=== PATIENT | male | born 1985 | race African-American/Black ===

== ENCOUNTER → 2016-12-03 | Outpatient (CLI) | payer OTHER ==
[2016-12-03 10:44] LABS: CH 29.7; CHCM 32.9; HCT 52.1 % (39.0-53.0); HDW 2.56; HGB 16.7 gm/dL (13.0-17.5); MCH 29.1 pg (25.0-35.0); MCHC 32.1 g/dL (31.0-37.0); MCV 90.7 fL (80.0-100.0); Mean Platelet Volume 9.3; RBC 5.75 m/uL (4.30-5.90); RDW 13.8 % (11.5-15.5); WBC 5.4 k/uL (3.8-10.6)
[2016-12-03 11:32] LABS: Prostate Specific Antigen 0.29 ng/mL (0.00-4.00)
== END | disposition home or self-care (01) ==
LOC: LABWHC1 10:15
PROVIDERS: ATTEND Internal Medicine Endocrinology, Diabetes & Metabolism
DX: E29.1 Testicular hypofunction (principal)
CPT/HCPCS: 36415; 84153; 84403; 85027

== ENCOUNTER 2017-04-10 00:16 | Emergency (ER) | payer OTHER ==
[2017-04-10] MEDS ORDERED: SODIUM CHLORIDE 0.9% 500 ML IV STA (00:52)
[2017-04-10] MEDS ORDERED: SODIUM CHLORIDE 0.9% 1,000 ML IV STA (00:52)
--- NOTE | 2017-04-10 01:01 | ED ---
General Adult HPI - General Source: patient, EMS, RN notes reviewed Mode of arrival: EMS Limitations: no limitations <Francisco Aquino - Last Filed: 04/10/17 00:57> <Hector Salcido - Last Filed: 04/10/17 02:06> - General Chief complaint: Chest Pain Stated complaint: Palpitations Time Seen by Provider: 04/10/17 00:18 - History of Present Illness Initial comments: Chief complaint history of present illness a 31-year-old male here with complaint of palpitations and chest discomfort. Patient reports been ongoing for about 3 hours. He states that he did this evening was eating a marijuana cookie. This has happened in the past and it has happened while eating marijuana cookies as well. He has been on Adderall in the past but not for a long time he never had these kinds of problems when he was on the Adderall. No sweats no nausea no vomiting but irregular heartbeats. Patient denies any other drugs. (Francisco Aquino) - Related Data Home Medications Medication Instructions Recorded Confirmed Dextroamphetamine/Amphetamine 20 mg PO QAM 02/24/15 02/24/15 [Adderall Xr] Testosterone Cypionate 100 mg IM DIRECTED 02/24/15 02/24/15 [Depo-Testosterone] Previous Rx's Medication Instructions Recorded Acetaminophen-Codeine 300-30mg 2 each PO Q4H PRN #20 tablet 02/24/15 [Tylenol #3] Ibuprofen [Motrin] 600 mg PO Q6HR PRN #20 tab 02/24/15 Allergies Allergy/AdvReac Type Severity Reaction Status Date / Time No Known Allergies Allergy Verified 04/10/17 00:16 Review of Systems ROS Other: All systems not noted in ROS Statement are negative. <Francisco Aquino - Last Filed: 04/10/17 00:57> ROS Other: All systems not noted in ROS Statement are negative. <Hector Salcido - Last Filed: 04/10/17 02:06> ROS Statement: Those systems with pertinent positive or pertinent negative responses have been documented in the HPI. review of systems no headache or visual acuity changes no chest pain with occasional sensation of discomfort with irregular heartbeat feels racing. No nausea no vomiting no GI/ problems. No neuro deficits. All systems were reviewed.Past medical problems significant for low testosterone is not received testosterone supplements over 6 months. He had eye surgery because of a detached retina after an accident as a child. His father has Saguache's chorea. Patient denies ALLERGIES does smoke he states he probably drinks too much. Has not been drinking this evening.no known ALLERGIES (Francisco Aquino) Past Medical History Past Medical History: No Reported History Additional Past Medical History / Comment(s): sarcoidosis History of Any Multi-Drug Resistant Organisms: MRSA Additional Past Surgical History / Comment(s): Right Hand Surgery Past Psychological History: ADD/ADHD Smoking Status: Current every day smoker Past Alcohol Use History: Occasional Past Drug Use History: Marijuana <Francisco Aquino - Last Filed: 04/10/17 00:57> General Exam Limitations: no limitations <Francisco Aquino - Last Filed: 04/10/17 00:57> <Hector Salcido - Last Filed: 04/10/17 02:06> - General Exam Comments Initial Comments: General: The patient is awake and alert,given because of palpitations. Vital signs shows temperature 98.9 pulse 92 respiratory rate 18 pulse ox 96% room air blood pressure 159/94 Eye: Pupils are equal, round and reactive to light, extra-ocular movements are intact ; there is normal conjunctiva bilaterally. No signs of icterus. Ears, nose, mouth and throat: There are moist mucous membranes and no oral lesions. Neck: The neck is supple, there is no tenderness . Cardiovascular: irregular rate and rhythm. No murmur Respiratory: Lungs are clear to auscultation, respirations are non-labored, breath sounds are equal. No wheezes, stridor, rales, or rhonchi. Gastrointestinal: Soft, non-distended, non-tender abdomen without masses or organomegaly noted. There is no rebound or guarding present. No CVA tenderness. Bowel sounds are unremarkable. Back: There is no tenderness to palpation in the midline. There is no obvious deformity. No rashes noted. Musculoskeletal: Normal ROM, no tenderness, There is no pedal edema. There is no calf tenderness or swelling. Sensation intact. Pulses equal bilaterally 2+. Neurological: CN II-XII intact, There are no obvious motor or sensory deficits. Coordination appears grossly intact. Speech is normal.no neuro deficits Skin: Skin is warm and dry and no rashes or lesions are noted. (Francisco Aquino) EKG Findings - EKG Comments: EKG Findings:: EKG was done and reviewed at 00 26 showing sinus rhythm with frequent PVCs. Rate 99 OH interval was 138 QRS is 86 QT [address] Aquino <Francisco Aquino - Last Filed: 04/10/17 00:57> Medical Decision Making <Francisco Aquino - Last Filed: 04/10/17 00:57> - Lab Data Result diagrams: 04/10/17 00:25 04/10/17 00:25 <Hector Salcido - Last Filed: 04/10/17 02:06> - Medical Decision Making 31-year-old male presenting with palpitations, and mild chest discomfort after eating a marijuana cookie. He has had these symptoms in the past. Patient's in no acute distress, vital signs are stable. He has a past medical history of sarcoidosis but is not currently on any medications. EKG shows normal sinus rhythm with a ventricular rate of 99, OH interval 138, QRS duration is 86, QTC 469, there is frequent PVCs. Laboratory studies including CBC, CMP, magnesium, and cardiac enzymes is unremarkable. Electrolytes are all normal. Patient is counseled on avoiding marijuana in the future as these are likely the precipitant of his palpitations and PVCs. Chest x-ray shows no acute process. Patient denies any other ingestion. Patient will be discharged home with outpatient follow-up Diagnosis: Palpitations, PVCs, marijuana ingestion. (Hector Salcido) - Lab Data Lab Results 04/10/17 04/10/17 04/10/17 Range/Units 00:25 00:25 00:25 WBC 6.7 (3.8-10.6) k/uL RBC 4.46 (4.30-5.90) m/uL Hgb 13.2 (13.0-17.5) gm/dL Hct 39.3 (39.0-53.0) % MCV 88.1 (80.0-100.0) fL MCH 29.7 (25.0-35.0) pg MCHC 33.7 (31.0-37.0) g/dL RDW 14.2 (11.5-15.5) % Plt Count 215 (150-450) k/uL Neutrophils % 65 % Lymphocytes % 26 % Monocytes % 4 % Eosinophils % 3 % Basophils % 1 % Neutrophils # 4.4 (1.3-7.7) k/uL Lymphocytes # 1.8 (1.0-4.8) k/uL Monocytes # 0.3 (0-1.0) k/uL Eosinophils # 0.2 (0-0.7) k/uL Basophils # 0.0 (0-0.2) k/uL PT (9.0-12.0) sec INR (<1.2) APTT (22.0-30.0) sec D-Dimer (<0.60) mg/L FEU Sodium 142 (137-145) mmol/L Potassium 4.1 (3.5-5.1) mmol/L Chloride 107 (98-107) mmol/L Carbon Dioxide 22 (22-30) mmol/L Anion Gap 13 mmol/L BUN 23 H (9-20) mg/dL Creatinine 1.20 (0.66-1.25) mg/dL Est GFR (MDRD) Af Amer >60 (>60 ml/min/1.73 sqM) Est GFR (MDRD) Non-Af >60 (>60 ml/min/1.73 sqM) Glucose 98 (74-99) mg/dL Calcium 10.0 (8.4-10.2) mg/dL Magnesium 1.7 (1.6-2.3) mg/dL Total Bilirubin 0.2 (0.2-1.3) mg/dL AST 16 L (17-59) U/L ALT 28 (21-72) U/L Alkaline Phosphatase 61 (38-126) U/L Total Creatine Kinase 87 (55-170) U/L CK-MB (CK-2) 0.4 (0.0-2.4) ng/mL CK-MB (CK-2) Rel Index 0.5 Troponin I <0.012 (0.000-0.034) ng/mL Total Protein 7.4 (6.3-8.2) g/dL Albumin 4.5 (3.5-5.0) g/dL 04/10/17 Range/Units 00:25 WBC (3.8-10.6) k/uL RBC (4.30-5.90) m/uL Hgb (13.0-17.5) gm/dL Hct (39.0-53.0) % MCV (80.0-100.0) fL MCH (25.0-35.0) pg MCHC (31.0-37.0) g/dL RDW (11.5-15.5) % Plt Count (150-450) k/uL Neutrophils % % Lymphocytes % % Monocytes % % Eosinophils % % Basophils % % Neutrophils # (1.3-7.7) k/uL Lymphocytes # (1.0-4.8) k/uL Monocytes # (0-1.0) k/uL Eosinophils # (0-0.7) k/uL Basophils # (0-0.2) k/uL PT 10.1 (9.0-12.0) sec INR 1.0 (<1.2) APTT 22.4 (22.0-30.0) sec D-Dimer <0.17 (<0.60) mg/L FEU Sodium (137-145) mmol/L Potassium (3.5-5.1) mmol/L Chloride (98-107) mmol/L Carbon Dioxide (22-30) mmol/L Anion Gap mmol/L BUN (9-20) mg/dL Creatinine (0.66-1.25) mg/dL Est GFR (MDRD) Af Amer (>60 ml/min/1.73 sqM) Est GFR (MDRD) Non-Af (>60 ml/min/1.73 sqM) Glucose (74-99) mg/dL Calcium (8.4-10.2) mg/dL Magnesium (1.6-2.3) mg/dL Total Bilirubin (0.2-1.3) mg/dL AST (17-59) U/L ALT (21-72) U/L Alkaline Phosphatase (38-126) U/L Total Creatine Kinase (55-170) U/L CK-MB (CK-2) (0.0-2.4) ng/mL CK-MB (CK-2) Rel Index Troponin I (0.000-0.034) ng/mL Total Protein (6.3-8.2) g/dL Albumin (3.5-5.0) g/dL Disposition <Francisco Aquino - Last Filed: 04/10/17 00:57> Time of Disposition: 02:06 <Hector Salcido - Last Filed: 04/10/17 02:06> Clinical Impression: PVCs (premature ventricular contractions), Marijuana abuse Disposition: HOME SELF-CARE Condition: Stable Instructions: Chest Pain (ED), Premature Ventricular Contractions (ED) Referrals: Mario Schofield MD [Primary Care Provider] - 1-2 days
[2017-04-10 01:25] LABS: Basophils % (A) 1 %; CH 29.9; CHCM 34.1; Eosinophils # (A) 0.2 k/uL (0-0.7); Eosinophils % (A) 3 %; HCT 39.3 % (39.0-53.0); HDW 2.58; HGB 13.2 gm/dL (13.0-17.5); Luc # (Auto) 0.08; Luc % (Auto) 1; Lymphocytes # (A) 1.8 k/uL (1.0-4.8); Lymphocytes % (A) 26 %; MCH 29.7 pg (25.0-35.0); MCHC 33.7 g/dL (31.0-37.0); MCV 88.1 fL (80.0-100.0); Mean Platelet Volume 9.4; Monocytes # (A) 0.3 k/uL (0-1.0); Monocytes % (A) 4 %; Neutrophils # (A) 4.4 k/uL (1.3-7.7); Neutrophils % (A) 65 %; RBC 4.46 m/uL (4.30-5.90); RDW 14.2 % (11.5-15.5); WBC 6.7 k/uL (3.8-10.6); WBC (Perox) 6.69
[2017-04-10 01:29] LABS: Partial Thromboplastin Time 22.4 sec (22.0-30.0); Prothrombin Time 10.1 sec (9.0-12.0)
[2017-04-10 01:32] LABS: Anion Gap 13 mmol/L; Blood Urea Nitrogen 23 mg/dL (9-20); Carbon Dioxide 22 mmol/L (22-30); Chloride 107 mmol/L (98-107); Glucose 98 mg/dL (74-99); Non-African American GFR(MDRD) >60 (>60 ml/min/1.73 sqM); Potassium 4.1 mmol/L (3.5-5.1); Sodium 142 mmol/L (137-145)
[2017-04-10 01:33] LABS: ALT 28 U/L (21-72); AST 16 U/L (17-59); Alkaline Phosphatase 61 U/L (38-126); Magnesium 1.7 mg/dL (1.6-2.3); Total Bilirubin 0.2 mg/dL (0.2-1.3); Total Protein 7.4 g/dL (6.3-8.2)
--- NOTE | 2017-04-10 01:37 | XR ---
EXAM: XR Chest, 2 Views CLINICAL HISTORY: Reason: Chest Pain. History of sarcoid. TECHNIQUE: Frontal and lateral views of the chest. COMPARISON: Chest radiograph on 10/03/2014 FINDINGS: Lungs/pleura: Normal. No focal consolidation. No pleural effusion or pneumothorax. Heart/mediastinum: Normal. No cardiomegaly. Soft tissues: Unremarkable. Bones: No acute fracture. Upper abdomen: Normal. IMPRESSION: No acute disease identified.
[2017-04-10 01:41] LABS: Creatine Kinase 87 U/L (55-170)
[2017-04-10 01:54] LABS: Creatine Kinase MB 0.4 ng/mL (0.0-2.4); Troponin I <0.012 ng/mL (0.000-0.034)
[2017-04-10 02:17] VITALS: BP 120/65; PULSE 81; RESP 14; TEMP 98.3
== END 2017-04-10 02:17 | disposition home or self-care (01) ==
LOC: EC 00:16
DX: I49.3 Ventricular premature depolarization (principal); F12.10 Cannabis abuse, uncomplicated; F17.200 Nicotine dependence, unspecified, uncomplicated; F90.9 Attention-deficit hyperactivity disorder, unspecified type; D86.9 Sarcoidosis, unspecified; Z79.899 Other long term (current) drug therapy; Z79.890 Hormone replacement therapy
CPT/HCPCS: 36415; 71020; 80053; 82550; 82553; 83735; 84484; 85025; 85379; 85610; 85730; 93005; 99285

== ENCOUNTER 2017-05-17 01:52 | Emergency (ER) | payer OTHER ==
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
--- NOTE | 2017-05-17 02:30 | XR ---
Exam: XR RIGHT ANKLE History: Pain. Comparison: None provided. Technique: 3 views. Findings: There is a complete, oblique fracture of the distal tibia at the level of the ankle joint. Possible posterior malleoli are nondisplaced fracture as well. Question minimal asymmetric widening of the ankle mortise medially. Impression: Ankle fracture as discussed above. Possibly Morales B. Follow-up with orthopedics service. Cannot rule out posterior malleolar fracture. If there is concern for underlying ligamentous injury, consider MRI.
[2017-05-17] MEDS ORDERED: Acetaminophen-Codeine 300-30mg TAB PO STA (02:44)
[2017-05-17 03:12] VITALS: BP 110/74; PULSE 78; RESP 18; TEMP 98.9
== END 2017-05-17 03:12 | disposition home or self-care (01) ==
LOC: EC 01:52
DX: S82.301A Unspecified fracture of lower end of right tibia, initial encounter for closed fracture (principal); F90.9 Attention-deficit hyperactivity disorder, unspecified type; F17.200 Nicotine dependence, unspecified, uncomplicated; Z79.899 Other long term (current) drug therapy; Z79.3 Long term (current) use of hormonal contraceptives; W10.1XXA Fall (on)(from) sidewalk curb, initial encounter
CPT/HCPCS: 29515; 99283

== ENCOUNTER → 2018-01-07 | Outpatient (CLI) | payer OTHER ==
--- NOTE | 2018-01-07 11:43 | US ---
EXAMINATION TYPE: US venous doppler duplex LE BI DATE OF EXAM: 01/07/2018 11:23 AM COMPARISON: NONE CLINICAL HISTORY: M79.604 Pain right leg, M79.605 Pain left leg. Left femur surgery 11/30/17. Pain bi lateral legs SIDE PERFORMED: Bilateral TECHNIQUE: The lower extremity deep venous system is examined utilizing real time linear array sonog oly with graded compression, doppler sonography and color-flow sonography. VESSELS IMAGED: External Iliac Vein (EIV) Common Femoral Vein Deep Femoral Vein Greater Saphenous Vein * Femoral Vein Popliteal Vein Small Saphenous Vein * Proximal Calf Veins (* superficial vessels) Grayscale, color doppler, spectral doppler imaging performed of the deep veins of the lower extremiti es. Right Leg: No evidence of DVT Left Leg: Non-occlusive DVT left popliteal vein mid. IMPRESSION: 1. Nonocclusive DVT left lower extremity mid popliteal vein.
[2018-01-07 12:24] LABS: HCT 32.2 % (39.0-53.0); HGB 10.4 gm/dL (13.0-17.5); MCH 27.5 pg (25.0-35.0); MCHC 32.3 g/dL (31.0-37.0); MCV 85.1 fL (80.0-100.0); Mean Platelet Volume 8.9; Platelet Count 196 k/uL (150-450); RBC 3.79 m/uL (4.30-5.90); WBC 4.6 k/uL (3.8-10.6)
[2018-01-07 12:47] LABS: ALT 20 U/L (21-72); AST 13 U/L (17-59); Alkaline Phosphatase 64 U/L (38-126); Anion Gap 11 mmol/L; Blood Urea Nitrogen 19 mg/dL (9-20); Carbon Dioxide 31 mmol/L (22-30); Chloride 98 mmol/L (98-107); Glucose 91 mg/dL (74-99); Potassium 4.2 mmol/L (3.5-5.1); Sodium 140 mmol/L (137-145); Total Bilirubin 0.2 mg/dL (0.2-1.3); Total Protein 6.5 g/dL (6.3-8.2)
== END | disposition home or self-care (01) ==
LOC: RADUSWWP 10:39
PROVIDERS: ATTEND Thoracic Surgery (Cardiothoracic Vascular Surgery)
DX: I82.432 Acute embolism and thrombosis of left popliteal vein (principal); M79.604 Pain in right leg; E63.8 Other specified nutritional deficiencies
CPT/HCPCS: 36415; 80053; 84134; 85027; 93970

== ENCOUNTER → 2018-01-14 | Outpatient (CLI) | payer OTHER ==
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
== END | disposition home or self-care (01) ==
LOC: RADCTMAIN 07:27
PROVIDERS: ATTEND Orthopaedic Surgery
DX: S92.101A Unspecified fracture of right talus, initial encounter for closed fracture (principal); S92.001A Unspecified fracture of right calcaneus, initial encounter for closed fracture; S92.211A Displaced fracture of cuboid bone of right foot, initial encounter for closed fracture

== ENCOUNTER → 2018-01-31 | Outpatient (CLI) | payer OTHER ==
[2018-01-31 10:23] LABS: Basophils % (A) 0 %; Eosinophils # (A) 0.1 k/uL (0-0.7); Eosinophils % (A) 3 %; HCT 37.1 % (39.0-53.0); Lymphocytes # (A) 1.4 k/uL (1.0-4.8); Lymphocytes % (A) 34 %; MCH 27.4 pg (25.0-35.0); MCHC 32.4 g/dL (31.0-37.0); MCV 84.7 fL (80.0-100.0); Mean Platelet Volume 9.2; Monocytes # (A) 0.2 k/uL (0-1.0); Monocytes % (A) 5 %; Neutrophils # (A) 2.4 k/uL (1.3-7.7); Neutrophils % (A) 56 %; Platelet Count 217 k/uL (150-450); RBC 4.38 m/uL (4.30-5.90); RDW 14.1 % (11.5-15.5); WBC 4.2 k/uL (3.8-10.6)
== END ==
LOC: LABWHC1 09:47
PROVIDERS: ATTEND Internal Medicine Endocrinology, Diabetes & Metabolism
DX: M54.16 Radiculopathy, lumbar region (principal); M25.571 Pain in right ankle and joints of right foot; M79.652 Pain in left thigh; E29.1 Testicular hypofunction; F17.218 Nicotine dependence, cigarettes, with other nicotine-induced disorders
CPT/HCPCS: 36415; 84153; 84403; 85025; 93005

== ENCOUNTER 2018-02-28 09:54 | Day surgery (SDC) | payer OTHER ==
[2018-02-25 09:48] VITALS: BMI 32.5
[~2018-02-28 09:54] MED LIST: DEXAMETHASONE SOD PHOSPHATE 10 MG/ML 1 ML VIAL IV ONE; LACTATED RINGERS 1,000 ML IV SCH; MIDAZOLAM 2 MG/2 ML VIAL IV PRN; ONDANSETRON 4 MG/2 ML VIAL IVP ONE; SCOPOLAMINE 1.5MG/72HR PATCH TRANSDERM ONE; ceFAZolin IN SWFI 2 GM/20 ML SYRINGE IVP ONE
[2018-02-28] MEDS ORDERED: LIDOCAINE 1% 20 ML VIAL (10MG/ML) FOR IV START INTRADERMA ONE (10:23)
[2018-02-28] MEDS ORDERED: LIDOCAINE 1% INJ 10MG/ML (20 ML MDV) ONE (12:17)
[2018-02-28] MEDS ORDERED: MIDAZOLAM 2 MG/2 ML VIAL ONE (12:17)
[2018-02-28] MEDS ORDERED: PROPOFOL 10 MG/ML 20 ML VIAL IV ONE (12:17)
[2018-02-28] MEDS ORDERED: SUCCINYLCHOLINE CHLORIDE 100 MG/5 ML SYR IV ONE (12:17)
[2018-02-28] MEDS ORDERED: ESMOLOL 100 MG/10 ML VIAL ONE (12:17)
[2018-02-28] MEDS ORDERED: fentaNYL (PF) 50 MCG/ML 2 ML AMP ONE (12:17)
[2018-02-28] MEDS ORDERED: HYDROmorphone (PF) 1 MG/ML ONE (12:17)
[2018-02-28] MEDS ORDERED: ceFAZolin 1,000 MG in SODIUM CHLORIDE 0.9% 1,000 ML IRRIGATION ONE (12:54)
[2018-02-28] MEDS ORDERED: LACTATED RINGERS 1,000 ML IV ONE (13:41)
[2018-02-28 14:31] VITALS: TEMP 97.5
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
[2018-02-28 14:42] VITALS: RESP 16
[2018-02-28] MEDS: fentaNYL (PF) 50 MCG/ML 2 ML AMP IV PRN ×4 (14:49→15:34)
--- NOTE | 2018-02-28 15:38 | FL ---
EXAMINATION TYPE: FL guidance operating room DATE OF EXAM: 02/28/2018 CLINICAL HISTORY: Right ankle foreign body removal TECHNIQUE: Fluoroscopy. COMPARISON: None. FINDINGS/IMPRESSION: Fluoroscopic guidance was provided during procedure performed by Dr. Park. A total of 1 minute and 12 seconds of fluoroscopic time was utilized during the procedure and 2 spot images was acquired during removal of a right ankle foreign body.
--- NOTE | 2018-02-28 15:41 | XR ---
Limited right ankle HISTORY: Removal of foreign body 2 views of the right ankle from intraoperative C-arm document the procedure
[2018-02-28] MEDS ORDERED: oxyCODONE-APAP 5-325MG 1 EACH TAB PO ONE ×2 (16:09→16:37)
[2018-02-28 16:56] VITALS: BP 113/73; PULSE 96
== END 2018-02-28 17:08 | disposition home or self-care (01) ==
LOC: OR 09:54
PROVIDERS: ATTEND Orthopaedic Surgery
DX: Z18.89 Other specified retained foreign body fragments (principal); W45.8XXA Other foreign body or object entering through skin, initial encounter; S92.121A Displaced fracture of body of right talus, initial encounter for closed fracture; W34.00XA Accidental discharge from unspecified firearms or gun, initial encounter; S72.352D Displaced comminuted fracture of shaft of left femur, subsequent encounter for closed fracture with routine healing; W34.00XD Accidental discharge from unspecified firearms or gun, subsequent encounter; R00.2 Palpitations; D86.9 Sarcoidosis, unspecified; Z79.1 Long term (current) use of non-steroidal anti-inflammatories (NSAID); Z79.891 Long term (current) use of opiate analgesic; Z79.899 Other long term (current) drug therapy; Z87.891 Personal history of nicotine dependence
CPT/HCPCS: 73600; 27620; C1713; J2250; J1100; J2405; J0690 ×2; J2001; J3010; J1170; J0330; J2704

== ENCOUNTER 2019-03-03 11:21 | Emergency (ER) | payer OTHER ==
[2019-03-03 11:50] VITALS: RESP 16
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
[2019-03-03 13:03] VITALS: BP 132/78; PULSE 80; TEMP 98.1
== END 2019-03-03 13:02 | disposition home or self-care (01) ==
LOC: EC 11:21
DX: S93.402A Sprain of unspecified ligament of left ankle, initial encounter (principal); M79.5 Residual foreign body in soft tissue; R00.1 Bradycardia, unspecified; H50.9 Unspecified strabismus; F17.200 Nicotine dependence, unspecified, uncomplicated; Z79.899 Other long term (current) drug therapy; Z86.14 Personal history of Methicillin resistant Staphylococcus aureus infection; Z98.890 Other specified postprocedural states; Z99.3 Dependence on wheelchair; V49.49XA Driver injured in collision with other motor vehicles in traffic accident, initial encounter; Y92.410 Unspecified street and highway as the place of occurrence of the external cause
CPT/HCPCS: 99284

== ENCOUNTER → 2019-06-15 | Outpatient (CLI) | payer OTHER ==
[2019-06-15 10:30] LABS: HCT 43.7 % (39.0-53.0); MCH 29.7 pg (25.0-35.0); MCHC 34.2 g/dL (31.0-37.0); MCV 86.6 fL (80.0-100.0); Mean Platelet Volume 7.5; Platelet Count 248 k/uL (150-450); RBC 5.04 m/uL (4.30-5.90); RDW 13.1 % (11.5-15.5); WBC 6.2 k/uL (3.8-10.6)
== END | disposition home or self-care (01) ==
LOC: LABWHC1 09:31
PROVIDERS: ATTEND Internal Medicine Endocrinology, Diabetes & Metabolism
DX: E29.1 Testicular hypofunction (principal)
CPT/HCPCS: 36415; 84403; 85027

== ENCOUNTER → 2019-11-23 | Outpatient (CLI) | payer OTHER ==
[2019-11-23 09:14] LABS: HCT 43.8 % (39.0-53.0); HGB 14.2 gm/dL (13.0-17.5); MCH 28.9 pg (25.0-35.0); MCHC 32.4 g/dL (31.0-37.0); MCV 89.1 fL (80.0-100.0); Mean Platelet Volume 9.1; Platelet Count 248 k/uL (150-450); RBC 4.91 m/uL (4.30-5.90); RDW 13.4 % (11.5-15.5); WBC 6.8 k/uL (3.8-10.6)
== END | disposition home or self-care (01) ==
LOC: LABWHC1 08:23
PROVIDERS: ATTEND Internal Medicine Endocrinology, Diabetes & Metabolism
DX: E29.1 Testicular hypofunction (principal)
CPT/HCPCS: 36415; 84153; 84403; 85027

== ENCOUNTER 2020-02-18 21:43 | Emergency (ER) | payer OTHER ==
[2020-02-18 22:07] VITALS: BP 132/84; PULSE 111; RESP 18; TEMP 99
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
--- NOTE | 2020-02-18 23:23 | XR ---
EXAMINATION TYPE: XR hand complete RT DATE OF EXAM: 02/18/2020 COMPARISON: NONE HISTORY: Pain TECHNIQUE: 3 views FINDINGS: There is fracture of the head of the fifth metacarpal. This is boxer type fracture with sli ght impaction. There is no dislocation. Joint spaces are normal. Carpal bones are intact. IMPRESSION: Boxer fracture of the fifth metacarpal head.
== END 2020-02-18 23:39 | disposition home or self-care (01) ==
LOC: EC 21:43
DX: S62.306A Unspecified fracture of fifth metacarpal bone, right hand, initial encounter for closed fracture (principal); E29.1 Testicular hypofunction; F17.200 Nicotine dependence, unspecified, uncomplicated; Z86.14 Personal history of Methicillin resistant Staphylococcus aureus infection; Z79.890 Hormone replacement therapy; Z79.899 Other long term (current) drug therapy; W22.8XXA Striking against or struck by other objects, initial encounter
CPT/HCPCS: 29125; 99283

== ENCOUNTER 2020-03-01 10:37 | Emergency (ER) | payer OTHER ==
[2020-03-01 10:44] VITALS: BP 152/79; PULSE 106; RESP 18; TEMP 98.2
[2020-03-01] MEDS ORDERED: IBUPROFEN 600 MG TAB PO STA (10:49)
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
== END 2020-03-01 11:50 | disposition home or self-care (01) ==
LOC: EC 10:37
DX: S99.812A Other specified injuries of left ankle, initial encounter (principal); F17.200 Nicotine dependence, unspecified, uncomplicated; Z79.899 Other long term (current) drug therapy; Z87.438 Personal history of other diseases of male genital organs; Z87.81 Personal history of (healed) traumatic fracture; Z86.14 Personal history of Methicillin resistant Staphylococcus aureus infection; Z96.698 Presence of other orthopedic joint implants; X50.1XXA Overexertion from prolonged static or awkward postures, initial encounter
CPT/HCPCS: 29515; 99283

== ENCOUNTER → 2020-05-02 | Outpatient (CLI) | payer OTHER ==
[2020-05-02 11:19] LABS: HGB 17.9 gm/dL (13.0-17.5); MCH 31.2 pg (25.0-35.0); MCHC 32.3 g/dL (31.0-37.0); MCV 96.7 fL (80.0-100.0); Mean Platelet Volume 9.5; Platelet Count 201 k/uL (150-450); RBC 5.74 m/uL (4.30-5.90); RDW 14.4 % (11.5-15.5); WBC 5.1 k/uL (3.8-10.6)
[2020-05-02 11:23] LABS: HCT 55.5 % (39.0-53.0)
== END | disposition home or self-care (01) ==
LOC: LABWHC1 10:16
PROVIDERS: ATTEND Internal Medicine Endocrinology, Diabetes & Metabolism
DX: E29.1 Testicular hypofunction (principal)
CPT/HCPCS: 36415; 84403; 85027

== ENCOUNTER → 2021-10-08 | Outpatient (CLI) | payer OTHER | END | disposition home or self-care (01) | LOC: LABMAIN 00:37 | PROVIDERS: ATTEND Emergency Medicine | DX: Z20.822 Contact with and (suspected) exposure to COVID-19 (principal) | CPT/HCPCS: 87635 ==

== ENCOUNTER 2022-05-14 00:46 | Emergency (ER) | payer BC, OTHER ==
[2022-05-14 00:53] VITALS: RESP 18
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
[2022-05-14 01:26] LABS: Basophils % (A) 1 %; Eosinophils # (A) 0.3 k/uL (0-0.7); Eosinophils % (A) 4 %; HCT 48.3 % (39.0-53.0); HGB 16.1 gm/dL (13.0-17.5); Lymphocytes # (A) 1.9 k/uL (1.0-4.8); Lymphocytes % (A) 25 %; MCH 30.9 pg (25.0-35.0); MCHC 33.3 g/dL (31.0-37.0); MCV 92.8 fL (80.0-100.0); Monocytes # (A) 0.3 k/uL (0-1.0); Monocytes % (A) 3 %; Neutrophils # (A) 5.1 k/uL (1.3-7.7); Neutrophils % (A) 66 %; Platelet Count 227 k/uL (150-450); RDW 12.9 % (11.5-15.5); WBC 7.7 k/uL (3.8-10.6)
--- NOTE | 2022-05-14 01:33 | XR ---
EXAMINATION TYPE: XR chest 2V DATE OF EXAM: 05/14/2022 COMPARISON: 04/10/2017 HISTORY: Chest pain TECHNIQUE: FINDINGS: Heart is normal. Lungs are clear. Diaphragm is normal. Bony thorax appears normal. There ar e chest leads. IMPRESSION: Normal chest. No change from
[2022-05-14 01:36] LABS: ALT 25 U/L (4-49); AST 28 U/L (17-59); African American GFR (CKD) >90 (>60 ml/min/1.73 sqM); Albumin 4.3 g/dL (3.5-5.0); Alkaline Phosphatase 70 U/L (38-126); Anion Gap 12 mmol/L; Blood Urea Nitrogen 14 mg/dL (9-20); Calcium 9.2 mg/dL (8.4-10.2); Carbon Dioxide 23 mmol/L (22-30); Chloride 103 mmol/L (98-107); Glucose 97 mg/dL (74-99); Non-African American GFR(CKD) >90 (>60 ml/min/1.73 sqM); Potassium 3.9 mmol/L (3.5-5.1); Sodium 138 mmol/L (137-145); Total Bilirubin 0.6 mg/dL (0.2-1.3); Total Protein 7.1 g/dL (6.3-8.2)
[2022-05-14 02:34] VITALS: BP 157/114; PULSE 67; TEMP 98.6
== END 2022-05-14 02:39 | disposition home or self-care (01) ==
LOC: EC 00:46
DX: R07.89 Other chest pain (principal); F41.0 Panic disorder [episodic paroxysmal anxiety]; F90.9 Attention-deficit hyperactivity disorder, unspecified type; Z72.89 Other problems related to lifestyle; F17.200 Nicotine dependence, unspecified, uncomplicated; F12.90 Cannabis use, unspecified, uncomplicated
CPT/HCPCS: 36415; 71046; 80053; 84484; 85025; 93005; 99285

== ENCOUNTER 2025-02-25 21:15 | Emergency (ER) | payer BC, OTHER ==
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
[2025-02-25 22:58] VITALS: BP 140/79; PULSE 95; RESP 18; TEMP 97.8
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
== END 2025-02-25 22:57 | disposition home or self-care (01) ==
LOC: EC 21:15
DX: G89.29 Other chronic pain (principal); M25.562 Pain in left knee; F17.200 Nicotine dependence, unspecified, uncomplicated
CPT/HCPCS: 99283